=== PATIENT | male | born 1990 | race Two or more races ===

== ENCOUNTER 2023-02-13 08:32 | Emergency (ER) | payer SELFPAY ==
[~2023-02-13] VITALS: Ht 165.1 cm; Wt 109.2 kg
[2023-02-13 10:00] VITALS: BP 153/84; PULSE 90; RESP 16; TEMP 98.1; O2SAT 97
[2023-02-13] MEDS ORDERED: AUG875T PO (10:23)
[2023-02-13] MEDS ORDERED: IBUP-1456 PO (10:23)
== END 2023-02-13 10:38 | disposition home or self-care (01) ==
LOC: ER 08:32
DX: H66.92 Otitis media, unspecified, left ear (principal)